=== PATIENT | female | born 1990 | race Caucasian/White ===

== ENCOUNTER 2017-09-29 16:23 | Emergency (ER) | payer MEDICAID ==
[2017-09-29] MEDS: LORAZEPAM 0.5 MG TAB PO (18:13)
== END 2017-09-29 19:11 | disposition home or self-care (01) ==
LOC: FTE 16:23
DX: R07.9 Chest pain, unspecified (principal); F41.9 Anxiety disorder, unspecified
CPT/HCPCS: 81025; 93005; 99283-25

== ENCOUNTER 2017-10-26 13:00 | Emergency (ER) | payer MEDICAID ==
[2017-10-26] MEDS: IBUPROFEN 600 MG TAB PO (13:40)
[2017-10-26] MEDS: predniSONE 20 MG TAB PO (13:40)
== END 2017-10-26 14:37 | disposition home or self-care (01) ==
LOC: FTE 13:00
DX: G51.0 Bell's palsy (principal); R40.2142 Coma scale, eyes open, spontaneous, at arrival to emergency department; R40.2362 Coma scale, best motor response, obeys commands, at arrival to emergency department; R40.2252 Coma scale, best verbal response, oriented, at arrival to emergency department
CPT/HCPCS: 70450; 99284-25